=== PATIENT | female | born 1940 | race African-American/Black ===

== ENCOUNTER 2016-08-03 11:08 | Emergency (ER) | payer OTHER ==
[2016-08-03 11:38] VITALS: TEMP 98.6; BMI 36.6
[2016-08-03 11:51] LABS: BASOPHIL 0.9 % (0-2.0); EOSINOPHIL 2.8 % (0-4.5); MCHC 32.5 g/dl (32.0-36.0); MEAN CELL VOLUME 89.4 fl (80-96); MEAN PLT VOLUME 9.7 fl (7.5-11.1); NEUTROPHILS 65.3 % (42.8-82.8); PLATELET COUNT 192 K/MM3 (134-434); RDW 14.4 % (11.6-15.6); WHITE BLOOD COUNT 6.6 K/mm3 (4.0-10.0)
[2016-08-03 12:15] LABS: INR 0.88 (0.82-1.09); PROTHROMBIN TIME (PATIENT) 9.6 SEC (9.98-11.88)
--- NOTE | 2016-08-03 12:16 | PDOC ---
History of Present Illness - General Chief Complaint: Vaginal Bleeding Stated Complaint: BLEEDING Time Seen by Provider: 08/03/16 11:15 History Source: Patient Exam Limitations: No Limitations - History of Present Illness Initial Comments: 08/03/16 20:41 08/03/16 20:41 My Chief Complaint: possible rectal bleeding today, intermittent vaginal bleeding since 01/12 History of Present Illness: Patient is a 76-year-old female with a history of uterine fibroids with intermittent vaginal bleeding since 01/12, hypertension, and bradycardia. Patient is scheduled to have a complete hysterectomy on 2016 with Harika Crook. Patient reports that she has not had any vaginal bleeding for a while however today when she wiped herself after urinating and defecating that she noticed a tiny amount of pink tinge substance on tissue. Patient reports that she had a bowel movement in exam and did did not notice any blood on the bowel movement it was brown and formed. Patient reports that a couple hours later she wiped her rectum and noticed some hanna color substance on the tissue. Patient reports having hemorrhoids however they have not flared up recently. Patient denies any previous rectal bleeding. Patient denies any nausea vomiting or diarrhea. Patient has had history of constipation in the past however recently her stool has not been hard. Patient did not take her blood pressure medication today. Patient denies any abdominal pain. Patient has minimal SUPRAPUBIC tenderness intermittently certain movements. Denies any flank pain, fever, chills, dysuria or urgency or frequency. 08/03/16 20:49 Timing/Duration: intermittent (today ) Severity: mild Associated Symptoms: reports: other (light pink substance noted on tissue when wiping vaginal today than pt. thought there could have been from rectum) Past History - Past Medical History Allergies/Adverse Reactions: Allergies Allergy/AdvReac Type Severity Reaction Status Date / Time No Known Allergies Allergy Verified 08/03/16 11:35 Home Medications: Ambulatory Orders Amlodipine Besylate 5 mg PO DAILY 08/03/16 Cardiac Disorders: Yes (bradycardia) HTN: Yes Other medical history: uterine fibroids - Psycho/Social/Smoking Cessation Hx Anxiety: No Suicidal Ideation: No Smoking History: Never smoked Have you smoked in the past 12 months: No Information on smoking cessation initiated: No Hx Alcohol Use: No Drug/Substance Use Hx: No Substance Use Type: None Review of Systems - Review of Systems Able to Perform ROS?: Yes Constitutional: No: Symptoms Reported HEENTM: No: Symptoms Reported Respiratory: No: Symptoms reported Cardiac (ROS): No: Symptoms Reported ABD/GI: Yes: Rectal Bleeding (quetionable today slight on tissues). No: Abd. Pain w/ defecation, Blood Streaked Bowels, Constipated, Diarrhea, Difficulty Swallowing, Nausea, Poor Appetite, Poor Fluid Intake, Vomiting, Indigestion, Abdominal cramping, Tarry Stools : Yes: Discharge (question pink discharge noted on tissue today). No: Burning , Dysuria, Frequency, Flank Pain, Hematuria, Incontinence, Pain, Urgency Integumentary: No: Symptoms Reported Neurological: No: Symptoms reported *Physical Exam - Vital Signs Last Vital Signs Temp Pulse Resp BP Pulse Ox 98.6 F 60 18 192/71 99 08/03/16 11:27 08/03/16 11:27 08/03/16 11:27 08/03/16 11:27 08/03/16 11:27 - Physical Exam General Appearance: Yes: Appropriately Dressed Respiratory/Chest: positive: Lungs Clear, Normal Breath Sounds. negative: Chest Tender, Respiratory Distress Cardiovascular: positive: Regular Rhythm, Regular Rate, S1, S2 Female Pelvic Exam: positive: other (refused exam, visual exam done not bleeding noted ) Gastrointestinal/Abdominal: positive: Normal Bowel Sounds, Soft. negative: Tender, Organomegaly, Distended, Guarding, Rebound, Tenderness, Hepatomegaly, Spleenomegaly Rectal Exam: positive: heme negative stool, normal exam, normal rectal tone, hemorrhoids (external non inflammed, on one area skin abrated), other (heme negative). negative: decreased tone, heme positive stool Integumentary: positive: Normal Color Neurologic: positive: Fully Oriented, Alert, Normal Response, Responsive ED Treatment Course - LABORATORY CBC & Chemistry Diagram: 08/03/16 11:37 08/03/16 11:37 - ADDITIONAL ORDERS Additional order review: 08/03/16 11:37 RBC 4.57 MCV 89.4 MCHC 32.5 RDW 14.4 MPV 9.7 Neutrophils % 65.3 Lymphocytes % 25.1 Monocytes % 5.9 Eosinophils % 2.8 Basophils % 0.9 Medical Decision Making - Medical Decision Making 08/03/16 12:15 Patient is a 76-year-old female with a history of uterine fibroids with intermittent vaginal bleeding since 01/12, hypertension, and bradycardia. Patient is scheduled to have a complete hysterectomy on 09/17/2016 with Harika Crook. Patient reports that she has not had any vaginal bleeding for a while however today when she wiped herself after urinating and defecating that she noticed a tiny amount of pink tinge substance on tissue. Patient reports that she had a bowel movement in exam and did did not notice any blood on the bowel movement it was brown and formed. Patient reports that a couple hours later she wiped her rectum and noticed some hanna color substance on the tissue. Patient reports having hemorrhoids however they have not flared up recently. Patient denies any previous rectal bleeding. Patient denies any nausea vomiting or diarrhea. Patient has had history of constipation in the past however recently her stool has not been hard. Patient did not take her blood pressure medication today. Patient denies any abdominal pain. Patient has minimal SUPRAPUBIC tenderness intermittently certain movements. Denies any flank pain, fever, chills, dysuria or urgency or frequency.Pt. refused vaginal exam stating, "it hurts too much" did not refuse rectal exam. R/O rectal bleeding hemorrhoid abrasion noted PLAN: cbc with diff cmp hemoccult negative Laboratory Tests 08/03/16 08/03/16 08/03/16 11:37 11:37 11:37 WBC 6.6 RBC 4.57 Hgb 13.3 Hct 40.9 MCV 89.4 MCHC 32.5 RDW 14.4 Plt Count 192 MPV 9.7 Neutrophils % 65.3 Lymphocytes % 25.1 Monocytes % 5.9 Eosinophils % 2.8 Basophils % 0.9 INR 0.88 Sodium 144 Potassium 4.0 Chloride 106 Carbon Dioxide 28 Anion Gap 10 BUN 15 Creatinine 0.9 Creat Clearance w eGFR > 60 Random Glucose 80 Calcium 9.0 AST Pending ALT 24 Total Protein 7.0 Albumin 3.4 08/03/16 12:56 08/03/16 20:53 08/03/16 20:58 *DC/Admit/Observation/Transfer Diagnosis at time of Disposition: Hemorrhoid Qualifiers: Hemorrhoid type: unspecified Qualified Code(s): K64.9 - Unspecified hemorrhoids - Discharge Dispostion Disposition: HOME Condition at time of disposition: Stable - Referrals Referrals: Blayne Ryan [Primary Care Provider] - - Patient Instructions Additional Instructions: Follow Up with your primary care provider within the next few days for further evaluation Follow up with Dr. Mendenhall as soon as possible Return to emergency room in symptoms worsen or new symptoms develop Soak in bath of this will help sooth irritated area on hemorrhoid a few times a day or put warm washcloth on rectal area Patient voiced understanding of discharge instructions and all questions were answered
[2016-08-03 12:19] LABS: ALBUMIN 3.4 g/dl (3.4-5.0); ANION GAP 10 (8-16); BILIRUBIN,TOTAL 0.5 mg/dL (0.2-1.0); CO2 28 mmol/L (21-32); COCKROFT - GAULT 76.1515; CREATININE 0.9 mg/dL (0.55-1.02); GLUCOSE,RANDOM 80 mg/dL (74-106); SGPT/ALT 24 U/L (12-78)
[2016-08-03 12:50] LABS: ALK PHOS 80 U/L (45-117); SGOT/AST 16 U/L (15-37)
[2016-08-03 13:58] VITALS: BP 188/72; PULSE 62
--- NOTE | 2016-08-04 16:27 | EKG ---
Test Reason : Blood Pressure : / mmHG Vent. Rate : 055 BPM Atrial Rate : 055 BPM P-R Int : 156 ms QRS Dur : 076 ms QT Int : 452 ms P-R-T Axes : 063 -06 076 degrees QTc Int : 432 ms SINUS BRADYCARDIA VOLTAGE CRITERIA FOR LEFT VENTRICULAR HYPERTROPHY NONSPECIFIC T WAVE ABNORMALITY ABNORMAL ECG NO PREVIOUS ECGS AVAILABLE Confirmed by LIZ MARY MD ([id number]) on 08/04/2016 4:27:20 PM Referred By: Confirmed By:LIZ MARY MD
== END 2016-08-03 13:59 | disposition home or self-care (01) ==
LOC: JER 11:08
DX: K64.9 Unspecified hemorrhoids (principal); D25.9 Leiomyoma of uterus, unspecified
CPT/HCPCS: 36415; 80053; 82272; 85025; 85610; 86850; 86900; 86901; 93005; 93010; 99284-25

== ENCOUNTER 2016-12-21 13:36 | Emergency (ER) | payer OTHER ==
[2016-12-21 13:51] VITALS: TEMP 96.8; BMI 36.6
[2016-12-21] MEDS ORDERED: SODIUM CHLORIDE 1,000 ML IV STA (14:15)
--- NOTE | 2016-12-21 14:37 | PDOC ---
History of Present Illness - General Chief Complaint: Vaginal Bleeding Stated Complaint: BLEEDING Time Seen by Provider: 12/21/16 13:56 History Source: Patient Exam Limitations: No Limitations - History of Present Illness Travel History: No Initial Comments: 12/21/16 14:18 76-year-old female with history of uterine polyps and fibroids presents the ED with vaginal bleeding that started suddenly while shopping today. Patient states is passing clots the size of great and since his happened to her numerous times and the past she continued to shop until bleeding did not subsided decided to call EMS and waited back at home. Patient states was told that she needed a hysterectomy secondary to the above by 2 different [employer]'s but states she did not feel comfortable with the surgeon nor the surgery and decided to postpone it. Patient currently complaining of generalized fatigue without shortness of breath, fever, dizziness or headache. Patient also denies fever, chills dysuria or back pain. Patient is complaining of mild mid suprapubic cramping and states the bleeding has subsided substantially since arrival. Timing/Duration: reports: constant Quality: reports: mild, cramping Abdominal Pain Onset Location: reports: suprapubic (mid) Pain Radiation: reports: no radiation Activities at Onset: reports: none Aggravating Factors: improves with: None Alleviating Factors: improves with: None Past History - Past Medical History Allergies/Adverse Reactions: Allergies Allergy/AdvReac Type Severity Reaction Status Date / Time No Known Allergies Allergy Verified 12/21/16 13:45 Home Medications: Ambulatory Orders Amlodipine Besylate 5 mg PO DAILY 08/03/16 Cardiac Disorders: Yes (bradycardia) HTN: Yes Other medical history: fibroids and blood clots, endometrial polyp (getting surgery soon) - Immunization History Immunization Up to Date: Yes - Psycho/Social/Smoking Cessation Hx Anxiety: No Suicidal Ideation: No Smoking History: Never smoked Have you smoked in the past 12 months: No If you are a former smoker, when did you quit?: 2004 Information on smoking cessation initiated: No Hx Alcohol Use: No Drug/Substance Use Hx: No Substance Use Type: None Patient Lives Alone: No Review of Systems - Review of Systems Able to Perform ROS?: No Is the patient limited Greenlandic proficient: No Constitutional: Yes: Weakness HEENTM: No: Symptoms Reported Respiratory: No: Symptoms reported Cardiac (ROS): Yes: Lightheadedness (mild) ABD/GI: Yes: Abdominal cramping (mild low) Integumentary: No: Symptoms Reported Neurological: Yes: Weakness *Physical Exam - Vital Signs Last Vital Signs Temp Pulse Resp BP Pulse Ox 96.8 F L 61 18 151/90 97 12/21/16 13:46 12/21/16 13:46 12/21/16 13:46 12/21/16 13:46 12/21/16 13:46 - Physical Exam General Appearance: Yes: Nourished, Appropriately Dressed. No: Apparent Distress HEENT: positive: Pharynx Normal. negative: Pale Conjunctivae Neck: positive: Supple Respiratory/Chest: positive: Lungs Clear, Normal Breath Sounds. negative: Respiratory Distress, Accessory Muscle Use Cardiovascular: positive: Regular Rhythm, Regular Rate. negative: Murmur Female Pelvic Exam: positive: vaginal bleeding (moderate amt of bright red blood without clots), other (pt refused pelvic exam) Gastrointestinal/Abdominal: positive: Soft, Tenderness (mild midsuprapubic) Musculoskeletal: negative: Normal Inspection Extremity: positive: Normal Capillary Refill Integumentary: positive: Normal Color, Warm, Moist Neurologic: positive: Motor Strength 5/5 ED Treatment Course - LABORATORY CBC & Chemistry Diagram: 12/21/16 14:15 12/21/16 14:15 - RADIOLOGY Radiology Studies Ordered: Category Date Time Status PELVIC / BLADDER US [US] Stat Ultrasound 12/21/16 14:15 Ordered Medical Decision Making - Medical Decision Making 12/21/16 14:32 Pt with episodic bleeding over the past 2 years and was recommended to have a hysterectomy but has postponed it twice. Patient states now is asymptomatic with mild lightheadedness along with generalized fatigue. Patient states was last seen by Dr. Mendenhall approx 3 months ago but failed to follow up for surgery. Patient on exam had bright red blood on her sanitary napkin and from her vaginal opening. Patient concerning for symptomatic anemia. Patient was ordered for labs including preop labs, IV fluids and ultrasound. 12/21/16 17:51 Ultrasound shows a large mass with echogenic rim/calcification in the mid uterus measuring 6.3 x 6 cm consistent with a fibroid. There is no free fluid in the cul-de-sac. H&H within normal limits. I will contact Dr. Mendenhall to discuss the case. 12/21/16 17:52 Laboratory Tests 08/03/16 12/21/16 12/21/16 11:37 14:15 14:15 WBC 9.3 D Hgb 13.3 10.8 D Hct 40.9 34.3 D Plt Count 219 Neutrophils % 77.1 INR Sodium 146 H Potassium 4.5 Chloride 107 Carbon Dioxide 33 H Anion Gap 6 L BUN 12 Creatinine 0.7 D Creat Clearance w eGFR > 60 Random Glucose 85 AST 22 D ALT 22 Blood Type Antibody Screen 12/21/16 12/21/16 14:15 14:15 WBC Hgb Hct Plt Count Neutrophils % INR 1.02 Sodium Potassium Chloride Carbon Dioxide Anion Gap BUN Creatinine Creat Clearance w eGFR Random Glucose AST ALT Blood Type AB POSITIVE Antibody Screen Negative 12/21/16 18:[address] Parry associate of Dr. Mendenhall's. She states she reviewed patient's chart and patient's H&H is within normal limits compared to previous labs she feels patient is stable enough to go home and follow-up in the office for management and schedule surgery as planned. Patient will have repeat vitals. Patient currently eating dinner patient's repeat vital stable. Patient currently eating dinner and completing the IV fluid infusion. *DC/Admit/Observation/Transfer Diagnosis at time of Disposition: Dysfunctional uterine bleeding Uterine leiomyoma Qualifiers: Uterine leiomyoma location: intramural Qualified Code(s): D25.1 - Intramural leiomyoma of uterus - Discharge Dispostion Disposition: HOME Condition at time of disposition: Good - Referrals Referrals: Harika Mendenhall MD [Staff Physician] - - Patient Instructions Printed Discharge Instructions: DI for Uterine Fibroids Additional Instructions: At this time I'm highly recommending that you follow-up with Dr. Mendenhall and schedule an appointment due to recurrent visits to the ER and worsening symptoms. Please return to the ED if any given time if symptoms worsen or bleeding increases.
[2016-12-21 14:48] LABS: BASOPHIL 0.7 % (0-2.0); EOSINOPHIL 1.7 % (0-4.5); MCH 29.4 pg (25.7-33.7); MCHC 31.5 g/dl (32.0-36.0); MEAN CELL VOLUME 93.3 fl (80-96); NEUTROPHILS 77.1 % (42.8-82.8); PLATELET COUNT 219 K/MM3 (134-434); RDW 15.1 % (11.6-15.6); WHITE BLOOD COUNT 9.3 K/mm3 (4.0-10.0)
[2016-12-21 15:01] LABS: INR 1.02 (0.82-1.09); PROTHROMBIN TIME (PATIENT) 11.2 SEC (9.98-11.88)
[2016-12-21 15:11] LABS: ALBUMIN 3.2 g/dl (3.4-5.0); ANION GAP 6 (8-16); BILIRUBIN,TOTAL 0.4 mg/dL (0.2-1.0); CALCIUM 8.7 mg/dL (8.5-10.1); CO2 33 mmol/L (21-32); CREATININE 0.7 mg/dL (0.55-1.02); GLUCOSE,RANDOM 85 mg/dL (74-106); SGPT/ALT 22 U/L (12-78); TOT PROT 6.4 g/dl (6.4-8.2)
[2016-12-21 15:12] LABS: ALK PHOS 69 U/L (45-117)
[2016-12-21 15:15] LABS: SGOT/AST 22 U/L (15-37)
--- NOTE | 2016-12-21 15:24 | PDOC ---
*Physical Exam - Vital Signs Last Vital Signs Temp Pulse Resp BP Pulse Ox 96.8 F L 61 18 151/90 97 12/21/16 13:46 12/21/16 13:46 12/21/16 13:46 12/21/16 13:46 12/21/16 13:46 ED Treatment Course - LABORATORY CBC & Chemistry Diagram: 12/21/16 14:15 12/21/16 14:15 - ADDITIONAL ORDERS Additional order review: Laboratory Results 12/21/16 12/21/16 14:15 14:15 INR 1.02 Sodium 146 H Potassium 4.5 Chloride 107 Carbon Dioxide 33 H Anion Gap 6 L BUN 12 Creatinine 0.7 D Creat Clearance w eGFR > 60 Random Glucose 85 Calcium 8.7 Total Bilirubin 0.4 AST 22 D ALT 22 Alkaline Phosphatase 69 Total Protein 6.4 Albumin 3.2 L 12/21/16 14:15 RBC 3.68 MCV 93.3 MCHC 31.5 L RDW 15.1 MPV 10.0 Neutrophils % 77.1 Lymphocytes % 14.6 D Monocytes % 5.9 Eosinophils % 1.7 Basophils % 0.7 Medical Decision Making - Medical Decision Making 12/21/16 15:24 Pt seen by Midlevel Provider under my direct supervision Ancillary studies reviewed I agree with plan as outlined by Midlevel Provider *DC/Admit/Observation/Transfer Diagnosis at time of Disposition: Dysfunctional uterine bleeding, Fibroid uterus - Discharge Dispostion Disposition: HOME Condition at time of disposition: Good - Referrals Referrals: Harika Mendenhall MD [Staff Physician] - - Patient Instructions Printed Discharge Instructions: DI for Uterine Fibroids Additional Instructions: At this time I'm highly recommending that you follow-up with Dr. Mendenhall and schedule an appointment due to recurrent visits to the ER and worsening symptoms. Please return to the ED if any given time if symptoms worsen or bleeding increases.
[2016-12-21 17:48] LABS: URINE APPEARANCE CLEAR; URINE BILIRUBIN NEGATIVE (NEGATIVE); URINE BLOOD 1+ (NEGATIVE); URINE COLOR YELLOW; URINE GLUCOSE (UA) NEGATIVE (NEGATIVE); URINE KETONE NEGATIVE (NEGATIVE); URINE LEUK ESTERASE NEGATIVE (NEGATIVE); URINE NITRITE NEGATIVE (NEGATIVE); URINE PROTEIN NEGATIVE (NEGATIVE); URINE UROBILINOGEN NEGATIVE mg/dL (0.2-1.0)
[2016-12-21 17:57] LABS: URINE MUCUS RARE; URINE RBC 4 /hpf (0-3); URINE WBC <1 /hpf (3-5)
[2016-12-21 18:36] VITALS: BP 164/102; PULSE 88
--- NOTE | 2016-12-23 21:46 | EKG ---
Test Reason : Blood Pressure : / mmHG Vent. Rate : 052 BPM Atrial Rate : 052 BPM P-R Int : 160 ms QRS Dur : 076 ms QT Int : 426 ms P-R-T Axes : 061 005 080 degrees QTc Int : 396 ms SINUS BRADYCARDIA MODERATE VOLTAGE CRITERIA FOR LVH, MAY BE NORMAL VARIANT NONSPECIFIC T WAVE ABNORMALITY ABNORMAL ECG WHEN COMPARED WITH ECG OF 03-AUG-2016 11:37, NO SIGNIFICANT CHANGE WAS FOUND Confirmed by SALINA WATERS, ALYSON ([id number]) on 12/23/2016 9:45:45 PM Referred By: Confirmed By:ALYSON DOWNING MD
== END 2016-12-21 19:53 | disposition home or self-care (01) ==
LOC: JER 13:36
PROC: 3E0337Z Introduction of Electrolytic and Water Balance Substance into Peripheral Vein, Percutaneous Approach (ICD-10-PCS; principal; 2016-12-21)
DX: D25.9 Leiomyoma of uterus, unspecified (principal)
CPT/HCPCS: 36415; 76856-TC; 80053; 81003; 81015; 85025; 85610; 86850; 86900; 86901; 93005; 93010; 96360; 96361; 99284-25